=== PATIENT | male | born 1965 | race Caucasian/White ===

== ENCOUNTER 2018-05-02 08:28 | Inpatient (IN) | payer OTHER ==
[2018-05-02 09:06] VITALS: BMI 25.3
--- NOTE | 2018-05-02 10:54 | HP ---
CIWA Score Nausea/Vomitin Muscle Tremors: 3 Anxiety: 3 Agitation: 2 Paroxysmal Sweats: 3 Orientation: 0-Oriented Tacttile Disturbances: 0-None Auditory Disturbances: 0-None Visual Disturbances: 0-None Headache: 0-None Present CIWA-Ar Total Score: 14 - Admission Criteria OASAS Guidelines: Admission for Medically Managed Detox: Requires at least one of the followin. CIWA greater than 12 2. Seizures within the past 24 hours 3. Delirium tremens within the past 24 hours 4. Hallucinations within the past 24 hours 5. Acute intervention needed for co occurring medical disorder 6. Acute intervention needed for co occurring psychiatric disorder 7. Severe withdrawal that cannot be handled at a lower level of care (continued vomiting, continued diarrhea, abnormal vital signs) requiring intravenous medication and/or fluids 8. Patient presents the following: CIWA greater than 12 Admission Criteria Met: Admission criteria met Admission ROS [facility] Chief Complaint: "I have problems with alcohol, I went to the doctor and found my pancreas and liver inflamed so I have to do something about it" Allergies/Adverse Reactions: Allergies Allergy/AdvReac Type Severity Reaction Status Date / Time No Known Drug Allergies Allergy Verified 05/02/18 09:50 History of Present Illness: 53 y/o man with a long history of alcohol, "with the last three years the worst " presents here today for detox. This is pt's first visit here but he has had detox in other centers with the last one at [facility] 4 months ago. Pt is in a methadone program, where he takes 45mg daily. He said he did not take today's dose prior to arrival here because the "route driver salesperson came for me @ my house". Explained to pt that verification will be done prior to his being medicated here and he verbalized understanding. Hx: HIV, MMTP. Endorses adherence to his antiretrovirals, and states he had his dose (Genvoya) today. Pt's utox positive for Marijuana but pt states he does not smoke but takes prescribed Marinol. Pt states he did not bring it with him and does "not need it for here". States he has a cough with normal colored phlegm, no coughing noted in intake, breath sounds clear. Others' Prescriptions Patient Name: Fredi Ramirez Date: 1965 Address: [address] [place] [id number] Sex: Male Rx Written Rx Dispensed Drug Quantity Days Supply Prescriber Name 04/10/2018 04/11/2018 oxycodone-acetaminophen 10-325 mg tab 14 7 Mike Vanegas MD 05/14/2017 05/15/2017 oxycodone-acetaminophen 10-325 mg tab 21 7 Mike Vanegas MD Patient Name: Fredi Ramirez Date: 1965 Address: [address] [place] [address] [address] [place] [address] Sex: Male Rx Written Rx Dispensed Drug Quantity Days Supply Prescriber Name 11/14/2017 11/17/2017 oxycodone-acetaminophen 10-325 mg tab 120 10 Negrita Young (PA) 09/20/2017 09/22/2017 hydromorphone 2 mg tablet 70 17 Jessica Stark Denies psych hx (declines psych consult), denies seizure-induced alcohol "because I drink everyday". Denies previous nor current SI/HI. Exam Limitations: No Limitations - Ebola screening Have you traveled outside of the country in the last 21 days: No (N) Have you had contact with anyone from an Ebola affected area: No Have you been sick,other than usual withdrawal symptoms: No Do you have a fever: No - Review of Systems Constitutional: Loss of Appetite, Night Sweats EENT: reports: No Symptoms Reported Respiratory: reports: Productive cough ("Normal" color) Cardiac: reports: No Symptoms Reported GI: reports: Diarrhea, Nausea : reports: No Symptoms Reported Musculoskeletal: reports: Back Pain, Other (ambulates with a cane) Integumentary: reports: Flushing Neuro: reports: Numbness, Other Endocrine: reports: No Symptoms Reported Hematology: reports: No Symptoms Reported Psychiatric: reports: No Sypmtoms Reported, Mood/Affect Appropiate, Orientated x3 Other Systems: Reviewed and Negative Patient History - Patient Medical History Hx Anemia: No Hx Asthma: No Hx Chronic Obstructive Pulmonary Disease (COPD): No Hx Cancer: No Hx Cardiac Disorders: No Hx Congestive Heart Failure: No Hx Hypertension: No Hx Hypercholesterolemia: No Hx Pacemaker: No HX Cerebrovascular Accident: No Hx Seizures: No Hx Dementia: No Hx Diabetes: No Hx Gastrointestinal Disorders: No Hx Liver Disease: No (Inflamed Liver) Hx Genitourinary Disorders: No Hx Sexually Transmitted Disorders: No Hx Renal Disease (ESRD): No Hx Thyroid Disease: No Hx Human Immunodeficiency Virus (HIV): Yes (Dx - 1988, on Genoya CD 4 count - 720) Hx Hepatitis C: No Hx Depression: No Hx Suicide Attempt: No (denies current ) Hx Bipolar Disorder: No Hx Schizophrenia: No - Patient Surgical History Past Surgical History: Yes Hx Neurologic Surgery: No Hx Cataract Extraction: No Hx Cholecystectomy: Yes (2004) Hx Orthopedic Surgery: Yes (BILATERAL HIP REPLACEMENT (R-12/31, L-September 2017)) Anesthesia Reaction: No - PPD History Previous Implant?: Yes Documented Results: Negative w/o proof Implanted On Prior [facility] Admission?: No PPD to be Administered?: Yes - Reproductive History Patient is a Female of Child Bearing Age (11 -55 yrs old): No - Smoking Cessation Smoking history: Current every day smoker Have you smoked in the past 12 months: Yes Aproximately how many cigarettes per day: 15 Cigars Per Day: 0 Hx Chewing Tobacco Use: No Initiated information on smoking cessation: Yes 'Breaking Loose' booklet given: 05/02/18 - Substance & Tx. History Hx Alcohol Use: Yes Hx Substance Use: No Substance Use Type: Alcohol Hx Substance Use Treatment: Yes - Substances Abused Alcohol Route: Oral Frequency: Daily Amount used: 4-6 [place] Age of first use: 15 Date of Last Use: 05/02/18 Family Disease History - Family Disease History Family History: Unremarkable Admission Physical Exam [facility] - Vital Signs Vital Signs: Vital Signs - 24 hr 05/02/18 09:04 Temperature 97.1 F L Pulse Rate 106 H Respiratory 20 Rate Blood Pressure 108/69 - Physical General Appearance: Yes: Mild Distress, Anxious HEENTM: Yes: Within Normal Limits Respiratory: Yes: Lungs Clear, No Respiratory Distress, No Accessory Muscle Use , Other (stated he has a cough; none noted during H & P, no fever, no resp distress noted, breath sounds clear) Neck: Yes: No masses,lesions,Nodules, Trachea in good position Breast: Yes: Breast Exam Deferred Cardiology: Yes: Tachycardia (sinus) Abdominal: Yes: Normal Bowel Sounds, Non Tender, Distended, Surgical Scar (RUQ, healed) Genitourinary: Yes: Within Normal Limits Back: Yes: Normal Inspection Musculoskeletal: Yes: Within Normal Limits, Other (walks with a cane) Extremities: Yes: Normal Capillary Refill, Normal Inspection, Normal Range of Motion Neurological: Yes: Within Normal Limits, Fully Oriented, Alert, Motor Strength 5 /5 Integumentary: Yes: Dry, Other (flushed) Lymphatic: Yes: Within Normal Limits - Diagnostic (1) Alcohol dependence, uncomplicated Current Visit: Yes Status: Acute (2) Opioid dependence on agonist therapy Current Visit: Yes Status: Chronic (3) Nicotine dependence Current Visit: Yes Status: Chronic (4) Cough Current Visit: Yes Status: Acute (5) HIV (human immunodeficiency virus infection) Current Visit: Yes Status: Acute (6) S/P bilateral hip replacements Current Visit: Yes Status: Chronic (7) Use of cane as ambulatory aid Current Visit: Yes Status: Chronic Cleared for Admission [facility] - Detox or Rehab [facility] Level of Care: Medically Managed Detox Regimen/Protocol: Librium [facility] Breath Alcohol Content Breath Alcohol Content: 0.116 Urine Drug Screen - Results Drug Screen Negative: No Urine Drug Screen Results: THC-Marijuana, MTD-Methadone
[2018-05-02] MEDS ORDERED: MAGNESIUM CITRATE 300 ML BOTTLE PO PRN (11:30)
[2018-05-02] MEDS ORDERED: MAGNESIUM HYDROX 2400MG/30ML ORAL SUSPENSION 30 ML CUP PO PRN (11:30)
[2018-05-02] MEDS ORDERED: NICOTINE POLACRILEX 2 MG GUM BUC PRN (11:30)
[2018-05-02] MEDS ORDERED: hydrOXYzine PAMOATE 25 MG CAPSULE (FP) PO PRN (11:30)
[2018-05-02] MEDS ORDERED: ACETAMINOPHEN 325 MG TABLET (FP) PO PRN (11:30)
[2018-05-02] MEDS ORDERED: P-EPHED 60MG/TRIPROLIDI 2.5MG TABLET PO PRN (11:30)
[2018-05-02] MEDS ORDERED: LOPERAMIDE HCL 2 MG CAPSULE PO PRN (11:30)
[2018-05-02] MEDS ORDERED: MENTHOL/PHENOL 1 EACH UD MM PRN (11:30)
[2018-05-02] MEDS ORDERED: guaiFENesin/D-METHORPHAN HB 10 ML UNIT-DOSE CUPS PO PRN (11:30)
[2018-05-02] MEDS ORDERED: chlordiazePOXIDE HCL 25 MG CAPSULE PO PRN (11:30)
[2018-05-02] MEDS ORDERED: MAG HYDROX/AL HYDROX/SIMETH 30 ML UNIT-DOSE CUP PO PRN (11:30)
[2018-05-02] MEDS ORDERED: chlordiazePOXIDE HCL 25 MG CAPSULE PO ONE (11:45)
[2018-05-02] MEDS ORDERED: FLU VACCINE QUAD 60 MCG/0.5 ML (MDV 18-19) IM ONE (12:00)
[2018-05-02] MEDS: NICOTINE 21 MG/24 HOURS TOPICAL PATCH TD SCH (12:42)
[2018-05-02] MEDS ORDERED: METHADONE HCL 10 MG TABLET PO SCH (13:00)
[2018-05-02] MEDS ORDERED: METHADONE HCL 5 MG TABLET ONE (13:12)
[2018-05-02] MEDS ORDERED: METHADONE HCL 40 MG DISPERSABLE TABLET ONE (13:12)
[2018-05-02] MEDS: METHADONE 40 MG, METHADONE 5 MG PO SCH (13:16)
--- NOTE | 2018-05-02 14:40 | EKG ---
Test Reason : Blood Pressure : / mmHG Vent. Rate : 074 BPM Atrial Rate : 074 BPM P-R Int : 136 ms QRS Dur : 082 ms QT Int : 414 ms P-R-T Axes : 031 058 055 degrees QTc Int : 459 ms NORMAL SINUS RHYTHM VOLTAGE CRITERIA FOR LEFT VENTRICULAR HYPERTROPHY NONSPECIFIC ST ABNORMALITY NO PREVIOUS ECGS AVAILABLE Confirmed by Aryan Lo ([id number]) on 05/02/2018 2:40:38 PM Referred By: Confirmed By:Aryan Lo
[2018-05-02] MEDS: chlordiazePOXIDE HCL 25 MG CAPSULE PO SCH ×2 (17:07→22:32)
[2018-05-02 20:26] LABS: URINE APPEARANCE CLEAR; URINE BILIRUBIN NEGATIVE (<2.0 mg/dL); URINE COLOR YELLOW; URINE GLUCOSE (UA) NEGATIVE (NEGATIVE); URINE KETONE NEGATIVE (NEGATIVE); URINE LEUK ESTERASE NEGATIVE (NEGATIVE); URINE NITRITE NEGATIVE (NEGATIVE); URINE PROTEIN NEGATIVE (NEGATIVE); URINE UROBILINOGEN NEGATIVE mg/dL (0.2-1.0)
[2018-05-02] MEDS: THIAMINE HCL 100 MG TABLET (FP) PO SCH (22:32)
[2018-05-02] MEDS: MELATONIN 5 MG TABLETS PO PRN (22:32)
[2018-05-03] MEDS ORDERED: METHADONE HCL 5 MG TABLET ONE (04:47)
[2018-05-03] MEDS ORDERED: METHADONE HCL 40 MG DISPERSABLE TABLET ONE (04:47)
[2018-05-03] MEDS: METHADONE 40 MG, METHADONE 5 MG PO SCH (05:12)
[2018-05-03] MEDS: chlordiazePOXIDE HCL 25 MG CAPSULE PO SCH ×4 (05:13→22:32)
[2018-05-03] MEDS: PRENATAL VITAMINS W/ FOLIC ACID TABLET (FP) PO SCH (10:24)
[2018-05-03] MEDS: NICOTINE 21 MG/24 HOURS TOPICAL PATCH TD SCH (10:25)
[2018-05-03 10:32] LABS: HEMATOCRIT 39.6 % (35.4-49); HEMOGLOBIN 13.4 GM/dL (11.7-16.9); MCH 34.9 pg (25.7-33.7); MEAN CELL VOLUME 102.8 fl (80-96); MEAN PLT VOLUME 8.5 fl (7.5-11.1); PLATELET COUNT 167 K/MM3 (134-434); RBC 3.85 M/mm3 (4.00-5.60); RDW 13.6 % (11.9-15.9); WHITE BLOOD COUNT 3.3 K/mm3 (4.0-10.0)
[2018-05-03 10:50] LABS: ALBUMIN 3.1 g/dl (3.4-5.0); ALK PHOS 108 U/L (45-117); ANION GAP 10 MMOL/L (8-16); BILIRUBIN,TOTAL 0.5 mg/dL (0.2-1); BLOOD UREA NITROGEN 13 mg/dL (7-18); CALCIUM 7.9 mg/dL (8.5-10.1); CHLORIDE 106 mmol/L (98-107); CO2 26 mmol/L (21-32); CREATININE 0.5 mg/dL (0.55-1.3); GLUCOSE,RANDOM 85 mg/dL (74-106); POTASSIUM 3.1 mmol/L (3.5-5.1); SGOT/AST 80 U/L (15-37); SGPT/ALT 81 U/L (13-61); SODIUM 141 mmol/L (136-145); TOT PROT 5.8 g/dl (6.4-8.2)
--- NOTE | 2018-05-03 13:47 | PN ---
S CIWA - CIWA Score Nausea/Vomitin Muscle Tremors: 4-Moderate,w/Arms Extend Anxiety: 4-Mod. Anxious/Guarded Agitation: 4-Moderately Restless Paroxysmal Sweats: 3 Orientation: 0-Oriented Tacttile Disturbances: 0-None Auditory Disturbances: 0-None Visual Disturbances: 0-None Headache: 0-None Present CIWA-Ar Total Score: 17 [facility] Progress Note (SOAP) Subjective: Sweating, chills, tremor Objective: 05/03/18 13:44 Last Vital Signs Temp Pulse Resp BP Pulse Ox 97.0 F L 95 H 18 106/80 05/03/18 09:27 05/03/18 09:27 05/03/18 09:27 05/03/18 09:27 Laboratory Tests 05/02/18 05/03/18 05/03/18 17:30 07:40 07:40 WBC 3.3 L RBC 3.85 L Hgb 13.4 Hct 39.6 MCV 102.8 H MCH 34.9 H MCHC 34.0 RDW 13.6 Plt Count 167 MPV 8.5 Sodium 141 Potassium 3.1 L Chloride 106 Carbon Dioxide 26 Anion Gap 10 BUN 13 Creatinine 0.5 L Creat Clearance w eGFR > 60 Random Glucose 85 Calcium 7.9 L Total Bilirubin 0.5 AST 80 H ALT 81 H Alkaline Phosphatase 108 Total Protein 5.8 L Albumin 3.1 L Urine Color Yellow Urine Appearance Clear Urine pH 6.0 Ur Specific [place] 1.019 Urine Protein Negative Urine Glucose (UA) Negative Urine Ketones Negative Urine Blood Negative Urine Nitrite Negative Urine Bilirubin Negative Urine Urobilinogen Negative Ur Leukocyte Esterase Negative RPR Titer 05/03/18 07:40 WBC RBC Hgb Hct MCV MCH MCHC RDW Plt Count MPV Sodium Potassium Chloride Carbon Dioxide Anion Gap BUN Creatinine Creat Clearance w eGFR Random Glucose Calcium Total Bilirubin AST ALT Alkaline Phosphatase Total Protein Albumin Urine Color Urine Appearance Urine pH Ur Specific [place] Urine Protein Urine Glucose (UA) Urine Ketones Urine Blood Urine Nitrite Urine Bilirubin Urine Urobilinogen Ur Leukocyte Esterase RPR Titer Nonreactive Labs reviewed: K 3.1 Assessment: 05/03/18 13:45 Withdrawal symptoms Noted with hypokalemia Plan: Continue detox Hypokalemia: K Dur 40 Meq PO x 2 doses (at least 4 hrs apart), K Dur 20mg PO daily start tomorrow, repeat K level in AM
[2018-05-03] MEDS ORDERED: POTASSIUM CHLORIDE TABS 20 MEQ TABLET.ER (FP) PO ONE ×2 (13:48→20:00)
[2018-05-03] MEDS: IBUPROFEN 400 MG TABLET (FP) PO PRN (17:45)
[2018-05-03] MEDS: THIAMINE HCL 100 MG TABLET (FP) PO SCH (22:32)
[2018-05-03] MEDS: MELATONIN 5 MG TABLETS PO PRN (22:32)
[2018-05-04] MEDS ORDERED: METHADONE HCL 40 MG DISPERSABLE TABLET ONE (04:36)
[2018-05-04] MEDS ORDERED: METHADONE HCL 5 MG TABLET ONE (04:37)
[2018-05-04] MEDS: chlordiazePOXIDE HCL 25 MG CAPSULE PO SCH ×2 (05:15→10:09)
[2018-05-04] MEDS: METHADONE 40 MG, METHADONE 5 MG PO SCH (05:15)
[2018-05-04] MEDS: POTASSIUM CHLORIDE TABS 20 MEQ TABLET.ER (FP) PO SCH (10:09)
[2018-05-04] MEDS: PRENATAL VITAMINS W/ FOLIC ACID TABLET (FP) PO SCH (10:09)
[2018-05-04] MEDS: NICOTINE 21 MG/24 HOURS TOPICAL PATCH TD SCH (10:11)
--- NOTE | 2018-05-04 11:27 | PN ---
S CIWA - CIWA Score Nausea/Vomitin-Mild Nausea/No Vomiting Muscle Tremors: 3 Anxiety: 3 Agitation: 3 Paroxysmal Sweats: 1-Minimal Palms Moist Orientation: 0-Oriented Tacttile Disturbances: 1-Very Mild Itch/Numbness Auditory Disturbances: 0-None Visual Disturbances: 0-None Headache: 1-Very Mild CIWA-Ar Total Score: 13 [facility] Progress Note (SOAP) Subjective: tremor sweat restlessness trouble sleep at night wants orthopedic shoes in his property Objective: 05/04/18 11:26 Vital Signs Temperature 97.8 F 05/04/18 09:41 Pulse Rate 80 05/04/18 09:41 Respiratory Rate 17 05/04/18 09:41 Blood Pressure 105/73 05/04/18 09:41 O2 Sat by Pulse Oximetry (%) Laboratory Last Values WBC 3.3 K/mm3 (4.0-10.0) L 05/03/18 07:40 RBC 3.85 M/mm3 (4.00-5.60) L 05/03/18 07:40 Hgb 13.4 GM/dL (11.7-16.9) 05/03/18 07:40 Hct 39.6 % (35.4-49) 05/03/18 07:40 MCV 102.8 fl (80-96) H 05/03/18 07:40 MCH 34.9 pg (25.7-33.7) H 05/03/18 07:40 MCHC 34.0 g/dl (32.0-35.9) 05/03/18 07:40 RDW 13.6 % (11.9-15.9) 05/03/18 07:40 Plt Count 167 K/MM3 (134-434) 05/03/18 07:40 MPV 8.5 fl (7.5-11.1) 05/03/18 07:40 Sodium 141 mmol/L (136-145) 05/03/18 07:40 Potassium 4.1 mmol/L (3.5-5.1) 05/04/18 07:00 Chloride 106 mmol/L (98-107) 05/03/18 07:40 Carbon Dioxide 26 mmol/L (21-32) 05/03/18 07:40 Anion Gap 10 MMOL/L (8-16) 05/03/18 07:40 BUN 13 mg/dL (7-18) 05/03/18 07:40 Creatinine 0.5 mg/dL (0.55-1.3) L 05/03/18 07:40 Creat Clearance w eGFR > 60 (>60) 05/03/18 07:40 Random Glucose 85 mg/dL (74-106) 05/03/18 07:40 Calcium 7.9 mg/dL (8.5-10.1) L 05/03/18 07:40 Total Bilirubin 0.5 mg/dL (0.2-1) 05/03/18 07:40 AST 80 U/L (15-37) H 05/03/18 07:40 ALT 81 U/L (13-61) H 05/03/18 07:40 Alkaline Phosphatase 108 U/L (45-117) 05/03/18 07:40 Total Protein 5.8 g/dl (6.4-8.2) L 05/03/18 07:40 Albumin 3.1 g/dl (3.4-5.0) L 05/03/18 07:40 Urine Color Yellow 05/02/18 17:30 Urine Appearance Clear 05/02/18 17:30 Urine pH 6.0 (5.0-8.0) 05/02/18 17:30 Ur Specific [place] 1.019 (1.010-1.035) 05/02/18 17:30 Urine Protein Negative (NEGATIVE) 05/02/18 17:30 Urine Glucose (UA) Negative (NEGATIVE) 05/02/18 17:30 Urine Ketones Negative (NEGATIVE) 05/02/18 17:30 Urine Blood Negative (NEGATIVE) 05/02/18 17:30 Urine Nitrite Negative (NEGATIVE) 05/02/18 17:30 Urine Bilirubin Negative (<2.0 mg/dL) 05/02/18 17:30 Urine Urobilinogen Negative mg/dL (0.2-1.0) 05/02/18 17:30 Ur Leukocyte Esterase Negative (NEGATIVE) 05/02/18 17:30 RPR Titer Nonreactive (NONREACTIVE) 05/03/18 07:40 lab noted ca supplement Assessment: 05/04/18 11:28 withdrawal sx low ca Plan: continue detox ca supplement
[2018-05-04] MEDS: CALCIUM 250MG/VIT-D 125 UNITS 1 COMBO TABLET PO SCH ×2 (13:48→22:19)
[2018-05-04] MEDS: chlordiazePOXIDE 5 MG CAPSULE PO SCH ×2 (17:06→22:19)
[2018-05-04] MEDS: THIAMINE HCL 100 MG TABLET (FP) PO SCH (22:19)
[2018-05-04] MEDS: MELATONIN 5 MG TABLETS PO PRN (22:20)
[2018-05-05] MEDS ORDERED: METHADONE HCL 40 MG DISPERSABLE TABLET ONE (03:03)
[2018-05-05] MEDS ORDERED: METHADONE HCL 5 MG TABLET ONE (03:03)
[2018-05-05] MEDS: METHADONE 40 MG, METHADONE 5 MG PO SCH (05:34)
[2018-05-05] MEDS: chlordiazePOXIDE 5 MG CAPSULE PO SCH ×2 (05:34→10:20)
[2018-05-05] MEDS: PRENATAL VITAMINS W/ FOLIC ACID TABLET (FP) PO SCH (10:20)
--- NOTE | 2018-05-05 10:20 | PN ---
[facility] Progress Note Note: PATIENT CONTINUES WITH DETOX REGIMEN. PATIENT C/O CHILLS, SWEATS AND INTERRUPTED SLEEP. Vital Signs Temperature 97.5 F L 05/05/18 09:25 Pulse Rate 74 05/05/18 09:25 Respiratory Rate 17 05/05/18 09:25 Blood Pressure 113/64 05/05/18 09:25 O2 Sat by Pulse Oximetry (%) Laboratory Results - last 24 hr 05/04/18 07:00 Potassium 4.1 Laboratory Tests 05/02/18 05/03/18 05/03/18 17:30 07:40 07:40 WBC 3.3 L RBC 3.85 L Hgb 13.4 Hct 39.6 MCV 102.8 H MCH 34.9 H MCHC 34.0 RDW 13.6 Plt Count 167 MPV 8.5 Sodium 141 Potassium 3.1 L Chloride 106 Carbon Dioxide 26 Anion Gap 10 BUN 13 Creatinine 0.5 L Creat Clearance w eGFR > 60 Random Glucose 85 Calcium 7.9 L Total Bilirubin 0.5 AST 80 H ALT 81 H Alkaline Phosphatase 108 Total Protein 5.8 L Albumin 3.1 L Urine Color Yellow Urine Appearance Clear Urine pH 6.0 Ur Specific [place] 1.019 Urine Protein Negative Urine Glucose (UA) Negative Urine Ketones Negative Urine Blood Negative Urine Nitrite Negative Urine Bilirubin Negative Urine Urobilinogen Negative Ur Leukocyte Esterase Negative RPR Titer 05/03/18 05/04/18 07:40 07:00 WBC RBC Hgb Hct MCV MCH MCHC RDW Plt Count MPV Sodium Potassium 4.1 Chloride Carbon Dioxide Anion Gap BUN Creatinine Creat Clearance w eGFR Random Glucose Calcium Total Bilirubin AST ALT Alkaline Phosphatase Total Protein Albumin Urine Color Urine Appearance Urine pH Ur Specific [place] Urine Protein Urine Glucose (UA) Urine Ketones Urine Blood Urine Nitrite Urine Bilirubin Urine Urobilinogen Ur Leukocyte Esterase RPR Titer Nonreactive PE; SKIN WARM, +FACIAL MOISTURE CAR S1S2 RESP CTA BL GI SOFT, BS+, NT/ND EXT FULL ROM, NO EDEMA ANXIOUS A/P WITHDRAWAL SX CONTINUE DETOX ENCOURAGE ORAL FLUIDS D/C IN AM CONTINUE TO MONITOR CLINICALLY
[2018-05-05] MEDS: CALCIUM 250MG/VIT-D 125 UNITS 1 COMBO TABLET PO SCH ×2 (10:21→22:22)
[2018-05-05] MEDS: POTASSIUM CHLORIDE TABS 20 MEQ TABLET.ER (FP) PO SCH (10:21)
[2018-05-05] MEDS: NICOTINE 21 MG/24 HOURS TOPICAL PATCH TD SCH (10:21)
[2018-05-05] MEDS: IBUPROFEN 400 MG TABLET (FP) PO PRN (14:10)
[2018-05-05] MEDS: chlordiazePOXIDE HCL 10 MG CAPSULE PO SCH ×2 (18:00→22:22)
[2018-05-05] MEDS: MELATONIN 5 MG TABLETS PO PRN (22:22)
[2018-05-05] MEDS: THIAMINE HCL 100 MG TABLET (FP) PO SCH (22:22)
[2018-05-06] MEDS ORDERED: METHADONE HCL 5 MG TABLET ONE (05:11)
[2018-05-06] MEDS ORDERED: METHADONE HCL 40 MG DISPERSABLE TABLET ONE (05:11)
[2018-05-06] MEDS: chlordiazePOXIDE HCL 10 MG CAPSULE PO SCH (05:23)
[2018-05-06] MEDS: METHADONE 40 MG, METHADONE 5 MG PO SCH (05:24)
[2018-05-06 06:18] VITALS: BP 101/67; PULSE 74; TEMP 97.2
--- NOTE | 2018-05-06 11:35 | DS ---
[facility] Detox Discharge Summary Admission Date: 05/02/18 Discharge Date: 05/06/18 - History Present History: Alcohol Dependence, Opioid Dependence Additional Comments: Patient completed detox successfully. Instructed to follow up with PCP within 1- 2 weeks. Pertinent Past History: Alcohol dependence Opioid dependence Nicotine dependence HIV - Physical Exam Results Vital Signs: Vital Signs Temperature 97.2 F L 05/06/18 06:17 Pulse Rate 74 05/06/18 06:17 Respiratory Rate 18 05/06/18 06:17 Blood Pressure 101/67 05/06/18 06:17 O2 Sat by Pulse Oximetry (%) Pertinent Admission Physical Exam Findings: Withdrawal symptoms Laboratory Tests 05/02/18 05/03/18 05/03/18 17:30 07:40 07:40 WBC 3.3 L RBC 3.85 L Hgb 13.4 Hct 39.6 MCV 102.8 H MCH 34.9 H MCHC 34.0 RDW 13.6 Plt Count 167 MPV 8.5 Sodium 141 Potassium 3.1 L Chloride 106 Carbon Dioxide 26 Anion Gap 10 BUN 13 Creatinine 0.5 L Creat Clearance w eGFR > 60 Random Glucose 85 Calcium 7.9 L Total Bilirubin 0.5 AST 80 H ALT 81 H Alkaline Phosphatase 108 Total Protein 5.8 L Albumin 3.1 L Urine Color Yellow Urine Appearance Clear Urine pH 6.0 Ur Specific [place] 1.019 Urine Protein Negative Urine Glucose (UA) Negative Urine Ketones Negative Urine Blood Negative Urine Nitrite Negative Urine Bilirubin Negative Urine Urobilinogen Negative Ur Leukocyte Esterase Negative RPR Titer 05/03/18 05/04/18 07:40 07:00 WBC RBC Hgb Hct MCV MCH MCHC RDW Plt Count MPV Sodium Potassium 4.1 Chloride Carbon Dioxide Anion Gap BUN Creatinine Creat Clearance w eGFR Random Glucose Calcium Total Bilirubin AST ALT Alkaline Phosphatase Total Protein Albumin Urine Color Urine Appearance Urine pH Ur Specific [place] Urine Protein Urine Glucose (UA) Urine Ketones Urine Blood Urine Nitrite Urine Bilirubin Urine Urobilinogen Ur Leukocyte Esterase RPR Titer Nonreactive Labs reviewed - Treatment Hospital Course: Detox Protocol Followed, Detoxed Safely, Responded well, Discharged Condition Good - Medication Discharge Medications: Ambulatory Orders Elviteg/Cob/Emtri/Tenof Alafen [Genvoya Tablet] 1 each PO DAILY #30 tablet 05/05 - Diagnosis (1) Hypokalemia Status: Resolved (2) Alcohol dependence, uncomplicated Status: Acute (3) Opioid dependence on agonist therapy Status: Acute (4) Cough Status: Acute (5) HIV (human immunodeficiency virus infection) Status: Chronic (6) Nicotine dependence Status: Chronic (7) Use of cane as ambulatory aid Status: Chronic - AMA Did Patient Leave Against Medical Advice: No (F/U with PCP within 1-2 weeks)
== END 2018-05-06 09:07 | disposition home or self-care (01) | DRG 773 ==
LOC: YASAS 08:28 → Y3N 10:50
PROC: HZ2ZZZZ Detoxification Services for Substance Abuse Treatment (ICD-10-PCS; principal; 2018-05-02)
DX: F10.20 Alcohol dependence, uncomplicated (principal); F11.20 Opioid dependence, uncomplicated; F17.210 Nicotine dependence, cigarettes, uncomplicated; Z21 Asymptomatic human immunodeficiency virus [HIV] infection status; E87.6 Hypokalemia; R05 Cough; R26.89 Other abnormalities of gait and mobility; Z99.89 Dependence on other enabling machines and devices; Z96.643 Presence of artificial hip joint, bilateral
CPT/HCPCS: 36415; 80053; 81003; 84132; 85027; 86593; 90688; 93005; 93010; G0008

== ENCOUNTER 2018-06-13 12:18 | Inpatient (IN) | payer OTHER ==
[2018-06-13 13:54] VITALS: BMI 24.7
--- NOTE | 2018-06-13 14:19 | HP ---
CIWA Score Nausea/Vomitin Muscle Tremors: 4-Moderate,w/Arms Extend Anxiety: 4-Mod. Anxious/Guarded Agitation: 1-Slight > Activity Paroxysmal Sweats: 1-Minimal Palms Moist Orientation: 0-Oriented Tacttile Disturbances: 0-None Auditory Disturbances: 1-Very Mild Visual Disturbances: 1-Very Mild Sensitivity Headache: 2-Mild CIWA-Ar Total Score: 17 - Admission Criteria OASAS Guidelines: Admission for Medically Managed Detox: Requires at least one of the followin. CIWA greater than 12 2. Seizures within the past 24 hours 3. Delirium tremens within the past 24 hours 4. Hallucinations within the past 24 hours 5. Acute intervention needed for co occurring medical disorder 6. Acute intervention needed for co occurring psychiatric disorder 7. Severe withdrawal that cannot be handled at a lower level of care (continued vomiting, continued diarrhea, abnormal vital signs) requiring intravenous medication and/or fluids 8. Patient presents the following: CIWA greater than 12 Admission Criteria Met: Admission criteria met Admission ROS S - HPI Chief Complaint: If I don't drink I throw up, I get so cold, I get so sick, I need a program to help me Allergies/Adverse Reactions: Allergies Allergy/AdvReac Type Severity Reaction Status Date / Time No Known Drug Allergies Allergy Verified 06/13/18 14:51 History of Present Illness: 53 yo gentleman here for detox from alcohol - history of HIV, adherent with meds , history of methadone maintenance program ([facility], 40mg, dosed today but left his bottle at home). History of detox here a month ago. Denies seizures, denies black outs. Urine tox + bzo but denies any benzo use. Urine tox + THC but not using marijuana, it is positive because of the marinol. Exam Limitations: Clinical Condition - Ebola screening Have you traveled outside of the country in the last 21 days: No (N) Have you had contact with anyone from an Ebola affected area: No Have you been sick,other than usual withdrawal symptoms: No Do you have a fever: No - Review of Systems Constitutional: Loss of Appetite, Malaise, Night Sweats, Changes in sleep, Weakness, Unintentional Wgt. Loss EENT: reports: No Symptoms Reported Respiratory: reports: No Symptoms reported Cardiac: reports: No Symptoms Reported GI: reports: Diarrhea, Nausea, Poor Appetite, Poor Fluid Intake, Indigestion, Abdominal cramping : reports: Frequency Musculoskeletal: reports: Back Pain, Joint Pain Integumentary: reports: Dryness Neuro: reports: Headache, Tremors Endocrine: reports: No Symptoms Reported Hematology: reports: No Symptoms Reported Psychiatric: reports: Judgement Intact, Mood/Affect Appropiate, Anxious Other Systems: Reviewed and Negative Patient History - Patient Medical History Hx Anemia: No Hx Asthma: No Hx Chronic Obstructive Pulmonary Disease (COPD): No Hx Cancer: No Hx Cardiac Disorders: No Hx Congestive Heart Failure: No Hx Hypertension: No Hx Hypercholesterolemia: No Hx Pacemaker: No HX Cerebrovascular Accident: No Hx Seizures: No Hx Dementia: No Hx Diabetes: No Hx Gastrointestinal Disorders: No Hx Liver Disease: No (elevated enzymes due to drinking) Hx Genitourinary Disorders: No Hx Sexually Transmitted Disorders: No Hx Renal Disease (ESRD): No Hx Thyroid Disease: No Hx Human Immunodeficiency Virus (HIV): Yes (Dx - 1988, on Genvoya CD 4 count - 745) Hx Hepatitis C: Yes (was treated) Hx Depression: Yes (hx medication - never hospitalized) Hx Suicide Attempt: No (denies current ) Hx Bipolar Disorder: No Hx Schizophrenia: No - Patient Surgical History Past Surgical History: Yes Hx Neurologic Surgery: No Hx Cataract Extraction: No Hx Cholecystectomy: Yes (2004) Hx Orthopedic Surgery: Yes (BILATERAL HIP REPLACEMENT (R-12/31, L-September 2017)) Anesthesia Reaction: No - PPD History Previous Implant?: Yes Documented Results: Negative w/proof Implanted On Prior R Admission?: Yes Date: 05/04/18 PPD to be Administered?: No - Reproductive History Patient is a Female of Child Bearing Age (11 -55 yrs old): No (male) - Smoking Cessation Smoking history: Current every day smoker Have you smoked in the past 12 months: Yes Aproximately how many cigarettes per day: 5 Cigars Per Day: 0 Hx Chewing Tobacco Use: No Initiated information on smoking cessation: Yes 'Breaking Loose' booklet given: 06/13/18 (give on floor) - Substance & Tx. History Hx Alcohol Use: Yes Hx Substance Use: Yes Substance Use Type: Alcohol Hx Substance Use Treatment: Yes (detox, methadone program) - Substances Abused alcohol Route: Oral Frequency: Daily Amount used: 5 pints vodka Age of first use: 16 Date of Last Use: 06/13/18 Family Disease History - Family Disease History Family Disease History: Heart Disease: Father (, hx etoh), Other: Father , Mother (living - healthy), Brother (two with both parents, five with dad only , healthy), Sister (three - healthy) Admission Physical Exam [facility] - Vital Signs Vital Signs: Vital Signs - 24 hr 06/13/18 13:52 Temperature 98.4 F Pulse Rate 86 Respiratory 20 Rate Blood Pressure 95/56 L - Physical General Appearance: Yes: Nourished, Appropriately Dressed, Moderate Distress, Tremorous, Anxious HEENTM: Yes: Hearing grossly Normal, Normocephalic, Normal Voice, Pharynx Normal , Other (tongue coated) Respiratory: Yes: Normal Breath Sounds, No Respiratory Distress Neck: Yes: No masses,lesions,Nodules, Supple Breast: Yes: Breast Exam Deferred Cardiology: Yes: Regular Rhythm, Regular Rate Abdominal: Yes: Flat, Soft Genitourinary: Yes: Frequency Back: Yes: Decreased Range of Motion, Other (walks bent over - mild kyphosis) Musculoskeletal: Yes: Joint Stiffness, Other (walks slowly with cane due to history of hip replacements) Neurological: Yes: Fully Oriented, Alert, Normal Mood/Affect, Normal Response Integumentary: Yes: Normal Color, Dry, Warm Lymphatic: Yes: Within Normal Limits - Diagnostic (1) Alcohol dependence, uncomplicated Current Visit: Yes Status: Chronic (2) HIV (human immunodeficiency virus infection) Current Visit: Yes Status: Chronic (3) Methadone maintenance therapy patient Current Visit: Yes Status: Chronic (4) Nicotine dependence Current Visit: Yes Status: Chronic Qualifiers: Nicotine product type: cigarettes Substance use status: uncomplicated Qualified Code(s): F17.210 - Nicotine dependence, cigarettes, uncomplicated (5) S/P bilateral hip replacements Current Visit: Yes Status: Chronic (6) Use of cane as ambulatory aid Current Visit: Yes Status: Chronic Cleared for Admission [facility] - Detox or Rehab [facility] Level of Care: Medically Managed Detox Regimen/Protocol: Librium [facility] Breath Alcohol Content Breath Alcohol Content: 0.244 Urine Drug Screen - Results Drug Screen Negative: No Urine Drug Screen Results: THC-Marijuana, BZO-Benzodiazepines, MTD-Methadone
[2018-06-13] MEDS ORDERED: MAGNESIUM HYDROX 2400MG/30ML ORAL SUSPENSION 30 ML CUP PO PRN (14:28)
[2018-06-13] MEDS ORDERED: MAG HYDROX/AL HYDROX/SIMETH 30 ML UNIT-DOSE CUP PO PRN (14:28)
[2018-06-13] MEDS ORDERED: chlordiazePOXIDE HCL 25 MG CAPSULE PO PRN (14:28)
[2018-06-13] MEDS ORDERED: MAGNESIUM CITRATE 300 ML BOTTLE PO PRN (14:28)
[2018-06-13] MEDS ORDERED: MENTHOL/PHENOL 1 EACH UD MM PRN (14:28)
[2018-06-13] MEDS ORDERED: guaiFENesin/D-METHORPHAN HB 10 ML UNIT-DOSE CUPS PO PRN (14:28)
[2018-06-13] MEDS ORDERED: LOPERAMIDE HCL 2 MG CAPSULE PO PRN (14:28)
[2018-06-13] MEDS ORDERED: ACETAMINOPHEN 325 MG TABLET (FP) PO PRN (14:28)
[2018-06-13] MEDS ORDERED: P-EPHED 60MG/TRIPROLIDI 2.5MG TABLET PO PRN (14:28)
[2018-06-13] MEDS: chlordiazePOXIDE HCL 25 MG CAPSULE PO SCH ×2 (17:08→22:18)
[2018-06-13] MEDS: NICOTINE POLACRILEX 4 MG GUM BUC PRN (17:09)
[2018-06-13] MEDS: THIAMINE HCL 100 MG TABLET (FP) PO SCH (22:18)
[2018-06-13] MEDS: MELATONIN 5 MG TABLETS PO PRN (22:18)
[2018-06-14] MEDS: chlordiazePOXIDE HCL 25 MG CAPSULE PO SCH ×4 (05:24→22:45)
[2018-06-14] MEDS: PRENATAL VITAMINS W/ FOLIC ACID TABLET (FP) PO SCH (10:32)
[2018-06-14 10:35] LABS: HEMATOCRIT 40.8 % (35.4-49); HEMOGLOBIN 14.6 GM/dL (11.7-16.9); MCH 35.4 pg (25.7-33.7); MCHC 35.7 g/dl (32.0-35.9); MEAN PLT VOLUME 8.9 fl (7.5-11.1); PLATELET COUNT 156 K/MM3 (134-434); RBC 4.12 M/mm3 (4.00-5.60); RDW 13.3 % (11.9-15.9); WHITE BLOOD COUNT 4.1 K/mm3 (4.0-10.0)
[2018-06-14 10:42] LABS: ALBUMIN 3.6 g/dl (3.4-5.0); ALK PHOS 163 U/L (45-117); ANION GAP 9 MMOL/L (8-16); BILIRUBIN,TOTAL 0.6 mg/dL (0.2-1); BLOOD UREA NITROGEN 12 mg/dL (7-18); CALCIUM 8.1 mg/dL (8.5-10.1); CHLORIDE 102 mmol/L (98-107); CO2 28 mmol/L (21-32); CREATININE 0.7 mg/dL (0.55-1.3); GLUCOSE,RANDOM 87 mg/dL (74-106); POTASSIUM 3.2 mmol/L (3.5-5.1); SGOT/AST 44 U/L (15-37); SGPT/ALT 65 U/L (13-61); SODIUM 139 mmol/L (136-145); TOT PROT 6.4 g/dl (6.4-8.2)
--- NOTE | 2018-06-14 10:52 | PN ---
[facility] CIWA - CIWA Score Nausea/Vomitin-Mild Nausea/No Vomiting Muscle Tremors: 3 Anxiety: 2 Agitation: 2 Paroxysmal Sweats: 1-Minimal Palms Moist Orientation: 1-Uncertain about Date Tacttile Disturbances: 0-None Auditory Disturbances: 0-None Visual Disturbances: 0-None Headache: 2-Mild CIWA-Ar Total Score: 12 S Progress Note (SOAP) Subjective: tremor sweat restlessness anxiety Objective: 06/14/18 10:56 Vital Signs Temperature 97.9 F 06/14/18 09:29 Pulse Rate 68 06/14/18 09:29 Respiratory Rate 18 06/14/18 09:29 Blood Pressure 124/72 06/14/18 09:29 O2 Sat by Pulse Oximetry (%) Laboratory Last Values WBC 4.1 K/mm3 (4.0-10.0) 06/14/18 07:30 RBC 4.12 M/mm3 (4.00-5.60) 06/14/18 07:30 Hgb 14.6 GM/dL (11.7-16.9) 06/14/18 07:30 Hct 40.8 % (35.4-49) 06/14/18 07:30 MCV 99.0 fl (80-96) H 06/14/18 07:30 MCH 35.4 pg (25.7-33.7) H 06/14/18 07:30 MCHC 35.7 g/dl (32.0-35.9) 06/14/18 07:30 RDW 13.3 % (11.9-15.9) 06/14/18 07:30 Plt Count 156 K/MM3 (134-434) 06/14/18 07:30 MPV 8.9 fl (7.5-11.1) 06/14/18 07:30 Sodium 139 mmol/L (136-145) 06/14/18 07:30 Potassium 3.2 mmol/L (3.5-5.1) L 06/14/18 07:30 Chloride 102 mmol/L (98-107) 06/14/18 07:30 Carbon Dioxide 28 mmol/L (21-32) 06/14/18 07:30 Anion Gap 9 MMOL/L (8-16) 06/14/18 07:30 BUN 12 mg/dL (7-18) 06/14/18 07:30 Creatinine 0.7 mg/dL (0.55-1.3) 06/14/18 07:30 Creat Clearance w eGFR > 60 (>60) 06/14/18 07:30 Random Glucose 87 mg/dL (74-106) 06/14/18 07:30 Calcium 8.1 mg/dL (8.5-10.1) L 06/14/18 07:30 Total Bilirubin 0.6 mg/dL (0.2-1) 06/14/18 07:30 AST 44 U/L (15-37) H 06/14/18 07:30 ALT 65 U/L (13-61) H 06/14/18 07:30 Alkaline Phosphatase 163 U/L (45-117) H 06/14/18 07:30 Total Protein 6.4 g/dl (6.4-8.2) 06/14/18 07:30 Albumin 3.6 g/dl (3.4-5.0) 06/14/18 07:30 06/14/18 11:00 lab noted hypo kalemia Assessment: 06/14/18 11:00 withdrawal sx low potassium 06/14/18 11:03 HIV methadone 40 mg po daily Plan: continue detox begin potassium supplement
[2018-06-14] MEDS: POTASSIUM CHLORIDE TABS 20 MEQ TABLET.ER (FP) PO SCH ×2 (14:57→22:45)
[2018-06-14] MEDS: NICOTINE POLACRILEX 4 MG GUM BUC PRN (15:44)
[2018-06-14] MEDS: IBUPROFEN 400 MG TABLET (FP) PO PRN (17:13)
[2018-06-14] MEDS: MELATONIN 5 MG TABLETS PO PRN (22:45)
[2018-06-14] MEDS: THIAMINE HCL 100 MG TABLET (FP) PO SCH (22:45)
[2018-06-15] MEDS: chlordiazePOXIDE HCL 25 MG CAPSULE PO SCH ×2 (06:03→10:30)
[2018-06-15] MEDS: IBUPROFEN 400 MG TABLET (FP) PO PRN ×3 (06:04→22:21)
[2018-06-15] MEDS ORDERED: METHADONE HCL 40 MG DISPERSABLE TABLET PO ONE (09:55)
[2018-06-15] MEDS: POTASSIUM CHLORIDE TABS 20 MEQ TABLET.ER (FP) PO SCH ×2 (10:29→22:18)
[2018-06-15] MEDS: PRENATAL VITAMINS W/ FOLIC ACID TABLET (FP) PO SCH (10:29)
--- NOTE | 2018-06-15 10:30 | PN ---
[facility] CIWA - CIWA Score Nausea/Vomitin-No Nausea/No Vomiting Muscle Tremors: 3 Anxiety: 3 Agitation: 3 Paroxysmal Sweats: 2 Orientation: 0-Oriented Tacttile Disturbances: 0-None Auditory Disturbances: 0-None Visual Disturbances: 0-None Headache: 0-None Present CIWA-Ar Total Score: 11 [facility] Progress Note (SOAP) Subjective: restless agitation sweats interrupted sleep Objective: 06/15/18 10:29 Vital Signs Temperature 97.7 F 06/15/18 09:30 Pulse Rate 64 06/15/18 09:30 Respiratory Rate 16 06/15/18 09:30 Blood Pressure 121/73 06/15/18 09:30 O2 Sat by Pulse Oximetry (%) Laboratory Tests 06/14/18 06/14/18 06/14/18 07:30 07:30 07:30 WBC 4.1 RBC 4.12 Hgb 14.6 Hct 40.8 MCV 99.0 H MCH 35.4 H MCHC 35.7 RDW 13.3 Plt Count 156 MPV 8.9 Sodium 139 Potassium 3.2 L Chloride 102 Carbon Dioxide 28 Anion Gap 9 BUN 12 Creatinine 0.7 Creat Clearance w eGFR > 60 Random Glucose 87 Calcium 8.1 L Total Bilirubin 0.6 AST 44 H ALT 65 H Alkaline Phosphatase 163 H Total Protein 6.4 Albumin 3.6 RPR Titer Nonreactive labs noted aaox3 ambulating no acute distress Assessment: 06/15/18 10:29 withdrawal sx Plan: continue detox increase fluids repeat labs
[2018-06-15] MEDS: chlordiazePOXIDE 5 MG CAPSULE PO SCH ×2 (17:24→22:18)
[2018-06-15] MEDS: NICOTINE POLACRILEX 4 MG GUM BUC PRN (20:55)
[2018-06-15] MEDS: THIAMINE HCL 100 MG TABLET (FP) PO SCH (22:18)
[2018-06-15] MEDS: MELATONIN 5 MG TABLETS PO PRN (22:20)
[2018-06-16] MEDS: METHADONE HCL 40 MG DISPERSABLE TABLET PO SCH (05:57)
[2018-06-16] MEDS: chlordiazePOXIDE 5 MG CAPSULE PO SCH ×2 (05:57→10:10)
[2018-06-16] MEDS: IBUPROFEN 400 MG TABLET (FP) PO PRN ×2 (08:42→16:29)
[2018-06-16] MEDS: NICOTINE POLACRILEX 4 MG GUM BUC PRN ×2 (08:43→15:24)
[2018-06-16] MEDS: POTASSIUM CHLORIDE TABS 20 MEQ TABLET.ER (FP) PO SCH ×2 (10:11→22:05)
[2018-06-16] MEDS: PRENATAL VITAMINS W/ FOLIC ACID TABLET (FP) PO SCH (10:11)
[2018-06-16 11:14] LABS: BASO % 0.3 % (0-2.0); EOS % 3.6 % (0-4.5); HEMATOCRIT 41.9 % (35.4-49); HEMOGLOBIN 13.8 GM/dL (11.7-16.9); LYMPH % 38.8 % (8-40); MCHC 32.8 g/dl (32.0-35.9); MEAN CELL VOLUME 100.7 fl (80-96); MEAN PLT VOLUME 9.1 fl (7.5-11.1); MONO % 9.9 % (3.8-10.2); NEUT % 47.4 % (42.8-82.8); PLATELET COUNT 136 K/MM3 (134-434); RBC 4.17 M/mm3 (4.00-5.60); RDW 12.9 % (11.9-15.9); WHITE BLOOD COUNT 3.9 K/mm3 (4.0-10.0)
[2018-06-16 11:22] LABS: ALBUMIN 3.3 g/dl (3.4-5.0); ALK PHOS 131 U/L (45-117); ANION GAP 7 MMOL/L (8-16); BILIRUBIN,TOTAL 0.4 mg/dL (0.2-1); BLOOD UREA NITROGEN 11 mg/dL (7-18); CALCIUM 8.7 mg/dL (8.5-10.1); CHLORIDE 106 mmol/L (98-107); CO2 26 mmol/L (21-32); CREATININE 0.5 mg/dL (0.55-1.3); GLUCOSE,RANDOM 90 mg/dL (74-106); SGOT/AST 32 U/L (15-37); SGPT/ALT 47 U/L (13-61); SODIUM 139 mmol/L (136-145); TOT PROT 5.9 g/dl (6.4-8.2)
--- NOTE | 2018-06-16 11:23 | PN ---
[facility] Progress Note Note: PATIENT CONTINUES WITH DETOX REGIMEN. PATIENT IS ALERT AND ORIENTED X 3. EVALUATED WHILE IN BED. STATES HE FEELS BETTER BUT STILL HAS NIGHT SWEATS, ANXIETY AND RESTLESSNESS. Vital Signs Temperature 98.6 F 06/16/18 09:36 Pulse Rate 77 06/16/18 09:36 Respiratory Rate 18 06/16/18 09:36 Blood Pressure 97/63 06/16/18 09:36 O2 Sat by Pulse Oximetry (%) Laboratory Tests 06/14/18 06/14/18 06/14/18 07:30 07:30 07:30 WBC 4.1 RBC 4.12 Hgb 14.6 Hct 40.8 MCV 99.0 H MCH 35.4 H MCHC 35.7 RDW 13.3 Plt Count 156 MPV 8.9 Sodium 139 Potassium 3.2 L Chloride 102 Carbon Dioxide 28 Anion Gap 9 BUN 12 Creatinine 0.7 Creat Clearance w eGFR > 60 Random Glucose 87 Calcium 8.1 L Total Bilirubin 0.6 AST 44 H ALT 65 H Alkaline Phosphatase 163 H Total Protein 6.4 Albumin 3.6 RPR Titer Nonreactive PE: A X O X3 SKIN WARM WITH FACIAL FLUSHING MOISTURE EXT NO VISIBLE TREMORS, FULL ROM AMB AD ROXIE MILDLY RESTLESS A/P WITHDRAWAL SX CONTINUE DETOX ENCOURAGE ORAL FLUIDS REPEAT LABS PENDING FOR D/C IN AM CONTINUE TO MONITOR
[2018-06-16] MEDS: chlordiazePOXIDE HCL 10 MG CAPSULE PO SCH ×2 (16:29→22:05)
[2018-06-16] MEDS: THIAMINE HCL 100 MG TABLET (FP) PO SCH (22:05)
[2018-06-16] MEDS: MELATONIN 5 MG TABLETS PO PRN (22:06)
[2018-06-17] MEDS: chlordiazePOXIDE HCL 10 MG CAPSULE PO SCH ×2 (05:27→10:00)
[2018-06-17] MEDS: METHADONE HCL 40 MG DISPERSABLE TABLET PO SCH (05:27)
[2018-06-17 06:34] VITALS: TEMP 97.7
[2018-06-17 09:05] VITALS: BP 105/76; PULSE 81
[2018-06-17] MEDS: POTASSIUM CHLORIDE TABS 20 MEQ TABLET.ER (FP) PO SCH (09:37)
[2018-06-17] MEDS: PRENATAL VITAMINS W/ FOLIC ACID TABLET (FP) PO SCH (09:37)
[2018-06-17] MEDS: IBUPROFEN 400 MG TABLET (FP) PO PRN (09:39)
[2018-06-17] MEDS: NICOTINE POLACRILEX 4 MG GUM BUC PRN (09:41)
--- NOTE | 2018-06-17 16:54 | DS ---
[facility] Detox Discharge Summary Admission Date: 06/13/18 Discharge Date: 06/17/18 - History Present History: Alcohol Dependence, Opioid Dependence, MMTP Additional Comments: PATIENT DECLINES REFERRAL TO REHAB AT THIS TIME. PATIENT RETURNING TO [facility] FOR AFTERCARE. PATIENT ALSO ADVISED TO CONSIDER LOCAL 12-STEP / NA / AA OUTPATIENT SUPPORT GROUPS FOR AFTERCARE. PATIENT VERBALIZED UNDERSTANDING OF RECOMMENDATION. PATIENT WAS DISCHARGED FROM DETOX UNIT IN STABLE MEDICAL CONDITION. Pertinent Past History: History Of Bilateral Hip Replacement, Hep C (Treated and Cured), HIV, M.M.T.P., HTN, Use Of Cane As Ambulatory Aid, History of Depression, History of Elevated Liver Enzymes, Hypokalemia. - Physical Exam Results Vital Signs: Vital Signs Temperature 97.7 F 06/17/18 09:04 Pulse Rate 81 06/17/18 09:04 Respiratory Rate 18 06/17/18 09:04 Blood Pressure 105/76 06/17/18 09:04 O2 Sat by Pulse Oximetry (%) Pertinent Admission Physical Exam Findings: WITHDRAWAL SYMPTOMS. Laboratory Tests 06/14/18 06/14/18 06/14/18 07:30 07:30 07:30 WBC 4.1 RBC 4.12 Hgb 14.6 Hct 40.8 MCV 99.0 H MCH 35.4 H MCHC 35.7 RDW 13.3 Plt Count 156 MPV 8.9 Absolute Neuts (auto) Neutrophils % Lymphocytes % Monocytes % Eosinophils % Basophils % Nucleated RBC % Sodium 139 Potassium 3.2 L Chloride 102 Carbon Dioxide 28 Anion Gap 9 BUN 12 Creatinine 0.7 Creat Clearance w eGFR > 60 Random Glucose 87 Calcium 8.1 L Total Bilirubin 0.6 AST 44 H ALT 65 H Alkaline Phosphatase 163 H Total Protein 6.4 Albumin 3.6 RPR Titer Nonreactive 06/16/18 06/16/18 07:30 07:30 WBC 3.9 L RBC 4.17 Hgb 13.8 Hct 41.9 MCV 100.7 H MCH 33.0 MCHC 32.8 RDW 12.9 Plt Count 136 MPV 9.1 Absolute Neuts (auto) 1.9 Neutrophils % 47.4 Lymphocytes % 38.8 Monocytes % 9.9 Eosinophils % 3.6 Basophils % 0.3 Nucleated RBC % 0 Sodium 139 Potassium 4.0 Chloride 106 Carbon Dioxide 26 Anion Gap 7 L BUN 11 Creatinine 0.5 L Creat Clearance w eGFR > 60 Random Glucose 90 Calcium 8.7 Total Bilirubin 0.4 AST 32 ALT 47 Alkaline Phosphatase 131 H Total Protein 5.9 L Albumin 3.3 L RPR Titer LABS NOTED. - Treatment Hospital Course: Detox Protocol Followed, Detoxed Safely, Responded well, Discharged Condition Good Patient has Accepted a Rehab Referral to: PT RETURNING TO [facility] ([place] FOR AFTERCARE. - Medication Discharge Medications: Ambulatory Orders Dronabinol [Marinol] 10 mg PO BID 06/13/18 Methadone [Dolophine -] 40 mg PO DAILY 06/13/18 Elviteg/Cob/Emtri/Tenof Alafen [Genvoya Tablet] 1 each PO DAILY #30 tablet 06/16 - Diagnosis (1) Alcohol dependence, uncomplicated Status: Chronic (2) HIV (human immunodeficiency virus infection) Status: Chronic (3) Methadone maintenance therapy patient Status: Chronic (4) Nicotine dependence Status: Chronic Qualifiers: Nicotine product type: cigarettes Substance use status: uncomplicated Qualified Code(s): F17.210 - Nicotine dependence, cigarettes, uncomplicated (5) S/P bilateral hip replacements Status: Chronic (6) Use of cane as ambulatory aid Status: Chronic (7) Hypokalemia Status: Resolved - AMA Did Patient Leave Against Medical Advice: No
== END 2018-06-17 10:03 | disposition home or self-care (01) | DRG 773 ==
LOC: YASAS 12:18 → Y6N 15:07
PROC: HZ2ZZZZ Detoxification Services for Substance Abuse Treatment (ICD-10-PCS; principal; 2018-06-13)
DX: F10.230 Alcohol dependence with withdrawal, uncomplicated (principal); F11.20 Opioid dependence, uncomplicated; F17.210 Nicotine dependence, cigarettes, uncomplicated; Z21 Asymptomatic human immunodeficiency virus [HIV] infection status; E87.6 Hypokalemia; R26.2 Difficulty in walking, not elsewhere classified; Z99.89 Dependence on other enabling machines and devices; Z96.643 Presence of artificial hip joint, bilateral
CPT/HCPCS: 36415; 80053; 85025; 85027; 86593